=== PATIENT | female | born 1980 | race African-American/Black ===

== ENCOUNTER 2017-01-20 23:43 | Emergency (ER) | payer SELFPAY ==
[2017-01-21] MEDS ORDERED: Ibuprofen 200 MG TAB ONE (00:05)
== END 2017-01-21 00:39 | disposition home or self-care (01) ==
LOC: NAV ERS 23:43
DX: S46.911A Strain of unspecified muscle, fascia and tendon at shoulder and upper arm level, right arm, initial encounter (principal); X50.0XXA Overexertion from strenuous movement or load, initial encounter
CPT/HCPCS: 99282

== ENCOUNTER 2017-02-14 17:46 | Emergency (ER) | payer SELFPAY ==
[2017-02-14] MEDS ORDERED: Ketorolac Tromethamine 30 MG/ML VIAL ONE (18:38)
== END 2017-02-14 19:00 | disposition home or self-care (01) ==
LOC: NAV ERS 17:46
DX: S16.1XXA Strain of muscle, fascia and tendon at neck level, initial encounter (principal); V49.9XXA Car occupant (driver) (passenger) injured in unspecified traffic accident, initial encounter
CPT/HCPCS: 96372; J1885

== ENCOUNTER 2017-08-21 07:42 | Emergency (ER) | payer SELFPAY ==
[2017-08-21] MEDS ORDERED: Ibuprofen 800 MG TAB ONE (07:58)
[2017-08-21] MEDS ORDERED: Amoxicillin/Potassium Clav 875 MG TAB ONE (08:33)
[2017-08-21] MEDS ORDERED: HYDROcodone/Acetaminophen 10/325 mg Tablet ONE (08:33)
== END 2017-08-21 08:47 | disposition home or self-care (01) ==
LOC: NAV ERS 07:42
DX: J02.9 Acute pharyngitis, unspecified (principal)
CPT/HCPCS: 87804; 99283

== ENCOUNTER 2020-03-04 20:45 | Emergency (ER) | payer BC ==
[2020-03-04] MEDS ORDERED: Ketorolac Tromethamine 60 MG/2 ML VIAL ONE (21:09)
== END 2020-03-04 21:40 | disposition home or self-care (01) ==
LOC: NAV ERS 20:45
DX: R51 Headache (principal)
CPT/HCPCS: 96372; 99283; J1885

== ENCOUNTER 2021-02-21 19:43 | Emergency (ER) | payer BC ==
[2021-02-21 20:58] LABS: #Basophils 0.1 thou/uL (0.0-0.2); #Eosinphils 0.1 thou/uL (0.0-0.7); #Monocytes 0.5 thou/uL (0.11-0.59); #Neutrophils 3.4 thou/uL (1.40-6.50); %Basophils 1.1 % (0.0-1.0); %Eosinophils 1.8 % (0.0-10.0); %Lymphocytes 42.4 % (21.0-51.0); %Monocytes 6.5 % (0.0-10.0); %Neutrophils 48.2 % (42.0-75.0); Hemoglobin 12.2 g/dL (12.0-16.0); Mean Corpuscular HGB CONC 31.6 g/dL (32.0-36.0); Mean Corpuscular Hemoglobin 30.2 pg (27.0-31.0); Mean Corpuscular Volume 95.7 fL (78.0-98.0); Mean Platelet Volume 6.7 fL (7.4-10.4); Platelet Count 264 thou/uL (130-400); RBC Distribution Width 11.3 % (11.5-14.5); Red Blood Cell (RBC) Count 4.05 mill/uL (4.20-5.40); White Blood Cell (WBC) Count 7.1 thou/uL (4.8-10.8)
[2021-02-21 21:16] LABS: ALT (SGPT) 34 U/L (8-55); AST (SGOT) 29 U/L (5-34); Albumin 4.4 g/dL (3.5-5.0); Alkaline Phosphatase 51 U/L (40-110); Anion Gap 15 mmol/L (10-20); BUN (Urea Nitrogen) 16 mg/dL (7.0-18.7); Bilirubin, Total 0.6 mg/dL (0.2-1.2); Calc. Creatinine Clearance 0 mL/min (70-130); Calcium 10.1 mg/dL (7.8-10.44); Carbon Dioxide 23 mmol/L (22-29); Chloride 106 mmol/L (98-107); Globulin 3.7 g/dL (2.4-3.5); Glucose 96 mg/dL (70-105); Potassium 3.5 mmol/L (3.5-5.1); Protein, Total 8.1 g/dL (6.0-8.3); Sodium 140 mmol/L (136-145)
[2021-02-21] MEDS ORDERED: methylPREDNISolone Sod Succ 40 MG VIAL ONE (23:50)
[2021-02-22 19:54] LABS: SARS-CoV-2 PCR by NAA Not Detected (NotDetected)
== END 2021-02-22 00:15 | disposition home or self-care (01) ==
LOC: NAV ERS 19:43
DX: J40 Bronchitis, not specified as acute or chronic (principal); Z20.822 Contact with and (suspected) exposure to COVID-19
CPT/HCPCS: 36415; 71045; 71275; 80053; 84484; 85025; 85379; 93005; 96374; J2920; U0003; U0005

== ENCOUNTER 2022-05-09 17:52 | Emergency (ER) | payer BC ==
[2022-05-09] MEDS ORDERED: Gentamicin Ophth Soln 0.3% 5 ml Bottle ONE (19:22)
[2022-05-09] MEDS ORDERED: NEOMYCIN-POLYMYXIN-HC EAR SUSP 200 DROP/10 ML BOT ONE (19:23)
== END 2022-05-09 19:37 | disposition home or self-care (01) ==
LOC: NAV ERS 17:52
DX: H60.502 Unspecified acute noninfective otitis externa, left ear (principal); J01.90 Acute sinusitis, unspecified; I10 Essential (primary) hypertension
CPT/HCPCS: 99283

== ENCOUNTER 2022-06-22 19:30 | Emergency (ER) | payer BC | END 2022-06-22 21:53 | disposition home or self-care (01) | LOC: NAV ERS 19:30 | DX: M79.601 Pain in right arm (principal); M79.605 Pain in left leg; M79.604 Pain in right leg; I10 Essential (primary) hypertension | CPT/HCPCS: 99283 ==

== ENCOUNTER 2023-06-08 09:48 | Emergency (ER) | payer BC ==
[2023-06-08] MEDS ORDERED: Naproxen 500 MG TAB ONE (10:23)
== END 2023-06-08 11:10 | disposition home or self-care (01) ==
LOC: NAV ERS 09:48
DX: M75.31 Calcific tendinitis of right shoulder (principal); R03.0 Elevated blood-pressure reading, without diagnosis of hypertension; J45.909 Unspecified asthma, uncomplicated; I10 Essential (primary) hypertension; Z79.899 Other long term (current) drug therapy

== ENCOUNTER 2024-04-18 17:33 | Emergency (ER) | payer BC ==
[2024-04-18] MEDS ORDERED: Ibuprofen 800 MG TAB ONE (17:52)
[2024-04-18] MEDS ORDERED: Bicillin LA 1.2 MILLION UNITS/2 ML SYRINGE ONE (17:53)
== END 2024-04-18 18:04 | disposition home or self-care (01) ==
LOC: NAV ERS 17:33
DX: J03.90 Acute tonsillitis, unspecified (principal); I10 Essential (primary) hypertension
CPT/HCPCS: 96372; 99282; J0561